=== PATIENT | male | born 1960 | race Caucasian/White ===

== ENCOUNTER → 2024-12-07 12:05 | Emergency (ER) | payer BC, SELFPAY ==
[2024-12-07 12:19] VITALS: BP 117/71
[2024-12-07 12:48] VITALS: BMI 23.7
--- NOTE | 2024-12-07 14:09 | ED.GENMED ---
History of Present Illness
General
Chief Complaint: Musculo-Skeletal Complaint
Time Seen by Provider: 12/07/24 12:49
History of Present Illness
History of Present Illness:
64-year-old male with history of prior substance abuse presents to the emergency department for evaluation of left knee pain and swelling for the past several days. Denies any traumatic injuries. Had initially been able to walk but over the past
24 hours cannot put weight on the left knee. No fevers or chills. Denies any known tick bites but does spend a good deal of time outdoors fishing during the spring and summer
Past History
Past History
ED Past Medical History: None
ED Past Surgical History: Orthopedic
Social History
Tobacco: Former smoker
Alcohol: None
Drug: None
Living: with family
Review of Systems
Review of Systems
Allergies reviewed?: Yes
All Other Systems: ROS reviewed and negative except as documented in HPI and ROS
Phy Exam
Physical Exam
Physical Exam:
GEN: Well appearing, NAD, WDWN
HEENT: Oral mucosa moist, no scleral icterus
Cardiac: Regular rate
Lung: No respiratory distress, no tachypnea
MSK: Moderate left knee effusion, range of motion limited by pain, no crepitus, no erythema or warmth
Skin: Good color, no pallor or jaundice, no rashes
Neuro: AO x3, moves all extremities freely
Psych: Calm, cooperative
Course
Orders/Labs/Results
Orders:
Orders
12/07/24 12:22
Knee, Left 4 or More Views [CR Knee - Left 4 Or More View*] Urgent
Comment:
Reason For Exam: left knee pain since thursday with swelling
12/07/24 13:42
Body Fluid Cell Count Urgent
What is the Body Fluid: joint
Date Specimen was Collected: 12/07/24
Time Specimen was Collected: 13:40
Comment: with DIFF
Body Fluid Crystals Urgent
What is the Body Fluid: joint
Date Specimen was Collected: 12/07/24
Time Specimen was Collected: 13:40
Lyme Progressive Urgent
Fluid Culture with Gram Stain Urgent
EMILIANO Source: Joint Fluid
Specimen Description:
Date Specimen was Collected: 12/07/24
Time Specimen was Collected: 13:40
Vital Signs
Initial and Last Documented VS:
Initial Vital Signs
Temp Pulse Resp BP Pulse Ox
98.4 F 109 16 117/71 98
12/07/24 12:19 12/07/24 12:19 12/07/24 12:19 12/07/24 12:19 12/07/24 12:19
Last Documented Vital Signs
Temp Pulse Resp BP Pulse Ox
98.4 F 109 16 117/71 98
12/07/24 12:19 12/07/24 12:19 12/07/24 12:19 12/07/24 12:19 12/07/24 14:11
Procedures
Incision/Drainage/Joint Aspiration
Left knee:
Preparation: cleaned with Betadine
Type of procedure: aspiration
Nature of site: other (Joint)
How much fluid was obtained?: number in mls (45)
Fluid description: cloudy and blood tinged
Treatment: bandaid applied (With Rolo wrap)
MDM/Problems Addressed
MDM/Problems Addressed:
Suspect acute Lyme arthritis synovial white cells with PMN predominance and negative crystals. Culture sent, no clinical concern at this time for septic arthritis. Will start empiric doxycycline, patient is aware that a positive Gram stain or
culture would warrant return to the emergency department for admission and orthopedic consultation.
*Pulse Oximetry
SaO2: 98
Oxygen Mode of Delivery: Room air
Patient hypoxic: no
*Critical Care Note
Total Time (30-74mins, 75-104mins- exclusive of procedures): Not Applicable
ED Attending Note
-
Portions of this chart may have been created with voice recognition software.� Occasional wrong word or��sound alike� substitutions may have occurred due to the inherent limitations of voice recognition software.
Discharge Plan
Departure
Patient Disposition: Home (Routine Discharge)
Date of Disposition: 12/07/24
Time of Disposition: 14:46
Patient with high blood pressure during this ER visit?: No
Discharge Problem:
Effusion of left knee
Instructions: Swollen Joints (DC)
Prescriptions:
New
doxycycline hyclate 100 mg capsule
100 mg PO BID 21 Days Qty: 42 0RF
No Action
amoxicillin-pot clavulanate [Augmentin] 1 EACH tablet
1 ea PO BID Qty: 19 0RF
cephalexin 500 mg capsule
500 mg PO BID 7 Days Qty: 14 0RF
Referrals:
Car Jon MD [Family Provider, [facility]]
Stand Alone Forms: Return to Work
Activity Restrictions/Additional Instructions:
Your Lyme disease test will result in 3 days, we will start you on antibiotics presumptively while awaiting that test result
There is a small possibility the culture test from the knee fluid could show bacteria that would warrant return to the hospital for IV antibiotics, please take ibuprofen as needed for pain and ice the knee often
Interventions
Interventions:
*Risk Screen - Suicide Last Done: 12/07/24 12:19
*General Assessment Last Done: 12/07/24 12:48
*Neglect/Abuse Screening Last Done: 12/07/24 12:19
*ED- Fall Risk Assessment Last Done: 12/07/24 12:48
*ED COVID-19 Vaccine History Last Done: 12/07/24 12:48
ED-Musculoskeletal Assessment Last Done: 12/07/24 12:48
Discharge Date and Time
Print Language: CROATIAN
[2024-12-07 14:43] LABS: Body Fluid Second Tech EM
[2024-12-08 12:46] LABS: Lyme Antibody Screen, EIA Presump. Positive (Negative)
== END | disposition home or self-care (01) ==
LOC: EMR 12:05
PROVIDERS: Physician Assistant; EMERGENCY PHYSICIAN Emergency Medicine; FAMILY PHYSICIAN Family Medicine
DX: M25.462 Effusion, left knee (principal); F19.10 Other psychoactive substance abuse, uncomplicated; Z87.891 Personal history of nicotine dependence
CPT/HCPCS: 99283; 20610; 73564; 86617; 86618; 87015; 87070; 87205; 89051; 89060